=== PATIENT | male | born 1970 | race Caucasian/White ===

== ENCOUNTER 2018-11-19 14:05 | Emergency (ER) | payer BC, OTHER ==
[~2018-11-19] VITALS: Ht 170.2 cm; Wt 107.5 kg
[~2018-11-19 14:05] MED LIST: ALDACTONE25 MG PO; AMARYL4 MG PO; AMIODARONE IV; CARVEDILOL25 M1 PO; CEL20 PO; COPAXONE20 MG SC; GLU10 PO; HUMALOG MIX 50/10 ML SC; JARDIANCE25 MG PO; LISINOPRIL/HCTZ PO; LISINOPRIL10 MG PO; METFORMIN1000 MG PO; MEV20 PO; MIRAPEX0.25 MG PO; PRAMIPEXOLE DI0.5 MG PO; TECFIDERA240 M1 PO; TORSEMIDE20 MG PO; TRULICITY0.75 MG/0. SC
[2018-11-19 14:12] VITALS: Ht 170.2 cm; Wt 107.5 kg
[2018-11-19 16:24] VITALS: BP 105/69
== END 2018-11-19 16:20 | disposition home or self-care (01) ==
LOC: ED 14:05
DX: T78.1XXA Other adverse food reactions, not elsewhere classified, initial encounter (principal); J44.9 Chronic obstructive pulmonary disease, unspecified; I11.0 Hypertensive heart disease with heart failure; I50.9 Heart failure, unspecified; E11.9 Type 2 diabetes mellitus without complications; G35 Multiple sclerosis; Z90.49 Acquired absence of other specified parts of digestive tract; X58.XXXA Exposure to other specified factors, initial encounter
CPT/HCPCS: J1200; J3490